=== PATIENT | male | born 1975 | race American Indian/Alaskan Native ===

== ENCOUNTER 2018-11-02 01:36 | Emergency (ER) | payer OTHER ==
[2018-11-02] MEDS ORDERED: ZOFRAN IM ONE (02:38)
[2018-11-02] MEDS ORDERED: SUBLIMAZE IM ONE (02:39)
[2018-11-02 03:09] LABS: Basophils # (Auto) 0.1 K/mm3 (0.0-0.1); Eosinophils # (Auto) 0.3 K/mm3 (0.0-0.4); Eosinophils % (Auto) 3.3 % (0.0-4.3); Lymphocytes # (Auto) 2.3 K/mm3 (1.2-5.4); Lymphocytes % (Auto) 29.6 % (13.4-35.0); Monocytes # (Auto) 0.6 K/mm3 (0.0-0.8); Monocytes % (Auto) 7.2 % (0.0-7.3)
[2018-11-02 03:13] LABS: Red Blood Count 4.57 M/mm3 (3.65-5.03)
[2018-11-02 03:14] LABS: Hematocrit 43.1 % (35.5-45.6); Hemoglobin 15.5 gm/dl (11.8-15.2); Mean Corpuscular HGB Conc 36 % (32-34); Mean Corpuscular Volume 94 fl (84-94); Platelet Count 208 K/mm3 (140-440); Red Cell Distribution Width 13.7 % (13.2-15.2)
[2018-11-02 03:30] LABS: Alanine Aminotransferase 24 units/L (7-56); Albumin 3.8 g/dL (3.9-5); BUN/Creatinine Ratio 21; Blood Urea Nitrogen 19 mg/dL (9-20); Calcium 8.9 mg/dL (8.4-10.2); Hemolysis Index 21
[2018-11-02 08:55] LABS: INR 0.91 (0.87-1.13)
--- NOTE | 2018-11-02 09:04 | Emergency Department Report ---
ED General Adult HPI - General Chief complaint: Extremity Injury, Lower Stated complaint: PAIN IN RT LEG, NUMBNESS IN BIG TOE RT FOOT Time Seen by Provider: 11/02/18 07:23 Source: patient Mode of arrival: Ambulatory Limitations: No Limitations - History of Present Illness Initial comments: This is a 42-year-old man states he's been having pain in his right popliteal area of his leg for more than a week. He states it has been somewhat progressive. He noted that he was having some difficulty dorsiflexing his right great toe. He does not complain of abdominal pain. The discomfort in his leg is moderate in intensity. He said no respiratory symptoms. He has not been to another medical provider over the course of this syndrome. He states he's never had this before. He denies any current medications or previous medical problems. -: Gradual, week(s) Location: right, lower extremity Radiation: non-radiation Severity scale (0 -10): 0 Quality: aching Consistency: intermittent Improves with: none Associated Symptoms: denies other symptoms (except as above) - Related Data Previous Rx's Medication Instructions Recorded Last Taken Type traMADol [Ultram] 50 mg PO Q6HR PRN #14 tablet 11/02/18 Unknown Rx Allergies Allergy/AdvReac Type Severity Reaction Status Date / Time No Known Allergies Allergy Unverified 11/02/18 02:35 ED Review of Systems ROS: Stated complaint: PAIN IN RT LEG, NUMBNESS IN BIG TOE RT FOOT Other details as noted in HPI Constitutional: denies: chills, fever Eyes: denies: eye pain, eye discharge, vision change ENT: denies: ear pain, throat pain Respiratory: denies: cough, shortness of breath, wheezing Cardiovascular: denies: chest pain, palpitations Endocrine: no symptoms reported Gastrointestinal: denies: abdominal pain, nausea, diarrhea Genitourinary: denies: urgency, dysuria Musculoskeletal: as per HPI. denies: back pain, joint swelling, arthralgia Skin: denies: rash, lesions Neurological: other (no problems with the ankle just difficulty moving the great toe). denies: headache, weakness, paresthesias Psychiatric: denies: anxiety, depression Hematological/Lymphatic: denies: easy bleeding, easy bruising ED Past Medical Hx - Past Medical History Previous Medical History?: No - Surgical History Past Surgical History?: No - Social History Smoking Status: Smoker, Current Status Unknown Substance Use Type: Alcohol - Medications Home Medications: Home Medications Medication Instructions Recorded Confirmed Last Taken Type traMADol [Ultram] 50 mg PO Q6HR PRN #14 tablet 11/02/18 Unknown Rx ED Physical Exam - General Limitations: No Limitations General appearance: alert, in no apparent distress - Head Head exam: Present: atraumatic, normocephalic - Eye Eye exam: Present: normal appearance, PERRL, EOMI. Absent: scleral icterus - ENT ENT exam: Present: mucous membranes moist - Neck Neck exam: Present: normal inspection - Respiratory Respiratory exam: Present: normal lung sounds bilaterally. Absent: respiratory distress - Cardiovascular Cardiovascular Exam: Present: regular rate, normal rhythm. Absent: systolic murmur, diastolic murmur, rubs, gallop - GI/Abdominal GI/Abdominal exam: Present: soft, normal bowel sounds. Absent: distended, tenderness, guarding, rebound, rigid - Rectal Rectal exam: Present: deferred - Extremities Exam Extremities exam: Present: normal inspection, full ROM, normal capillary refill. Absent: tenderness, pedal edema, joint swelling, calf tenderness - Back Exam Back exam: Present: normal inspection. Absent: tenderness, CVA tenderness (R), CVA tenderness (L), muscle spasm, paraspinal tenderness, vertebral tenderness - Neurological Exam Neurological exam: Present: alert, oriented X3, CN II-XII intact, other (the patient was able to dorsi flex his foot in the neutral position. He did not have a good ability to dorsi flex his great toe individually. He complained of some discrepancy of fine touch testing but no numbness affecting his right foot). Absent: motor sensory deficit - Psychiatric Psychiatric exam: Present: normal affect, normal mood - Skin Skin exam: Present: warm, dry, intact, normal color. Absent: rash - Other Other exam information: Dorsalis pedis and posterior tibial pulses were 2+ bilaterally ED Course Vital Signs 11/02/18 11/02/18 11/02/18 01:50 02:26 06:59 Temperature 97.7 F 97.7 F Pulse Rate 62 65 64 Respiratory 18 16 Rate Blood Pressure 140/84 140/84 O2 Sat by Pulse 100 99 Oximetry - Reevaluation(s) Reevaluation #1: I consulted with Dr. Finley, or so, who reviewed the CT report. He stated he could be followed at the office and an emergent MRI is not needed at this point. 11/02/18 10:22 ED Medical Decision Making - Lab Data Result diagrams: 11/02/18 02:50 11/02/18 02:50 Laboratory Results - last 24 hr 11/02/18 11/02/18 11/02/18 02:50 02:50 02:50 WBC 7.8 RBC 4.57 Hgb 15.5 H Hct 43.1 MCV 94 MCH 34 H MCHC 36 H RDW 13.7 Plt Count 208 Lymph % (Auto) 29.6 Bremer % (Auto) 7.2 Eos % (Auto) 3.3 Baso % (Auto) 1.0 Lymph # 2.3 Bremer # 0.6 Eos # 0.3 Baso # 0.1 Seg Neutrophils % 58.9 Seg Neutrophils # 4.6 PT INR APTT D-Dimer < 135.0 Sodium 141 Potassium 4.0 Chloride 107.4 H Carbon Dioxide 22 Anion Gap 16 BUN 19 Creatinine 0.9 Estimated GFR > 60 BUN/Creatinine Ratio 21 Glucose 102 H Calcium 8.9 Total Bilirubin 0.20 AST 18 ALT 24 Alkaline Phosphatase 76 Total Protein 6.8 Albumin 3.8 L Albumin/Globulin Ratio 1.3 11/02/18 08:30 WBC RBC Hgb Hct MCV MCH MCHC RDW Plt Count Lymph % (Auto) Bremer % (Auto) Eos % (Auto) Baso % (Auto) Lymph # Bremer # Eos # Baso # Seg Neutrophils % Seg Neutrophils # PT 12.8 INR 0.91 APTT 30.0 D-Dimer 136.37 Sodium Potassium Chloride Carbon Dioxide Anion Gap BUN Creatinine Estimated GFR BUN/Creatinine Ratio Glucose Calcium Total Bilirubin AST ALT Alkaline Phosphatase Total Protein Albumin Albumin/Globulin Ratio - Radiology Data Venous and arterial Doppler are normal Vertebral body heights and alignment are maintained. There is no acute fracture identified. At L1-2, L2-3 and L3-4 there are no disc protrusion, spinal or neuroforaminal stenosis. At L4-5 there is mild to moderate narrowing of the intervertebral disc. There is a diffuse disc bulge . There is a more focal right posterolateral disc protrusion causing mild right neural foraminal narrowing and mild effacement of the right lateral recess. There is only minimal central spinal canal narrowing. At L5-S1 there is mild to moderate intervertebral disc space narrowing with mild marginal spurring. A moderate size central to right paramedian disc herniation causing moderate spinal stenosis and apparent in impingement of right S1 root. IMPRESSION: L5-S1 moderate sized right of midline disc herniation causing moderate focal canal stenosis with impingement of right S1 root. There is also L4-5 degenerative disc disease, as above, causing some mild effacement of the right lateral recess and mild right neuroforaminal narrowing. Critical care attestation.: If time is entered above; I have spent that time in minutes in the direct care of this critically ill patient, excluding procedure time. ED Disposition Clinical Impression: Sciatica, right side, Herniated nucleus pulposus Disposition: TO HOME OR SELFCARE Is pt being admited?: No Does the pt Need Aspirin: No Condition: Stable Instructions: Sciatica (ED) Additional Instructions: No significant lifting. Rest back. Orthopedic follow-up. Call Dr. Finley's office on Saturday. Rx as needed for pain. Return to the emergency department any acute change or problems especially if you have significant back pain, difficulty with urinating or bowel movements or any progressive weakness of your leg. Prescriptions: traMADol [Ultram] 50 mg PO Q6HR PRN #14 tablet PRN Reason: Pain Referrals: PRIMARY CAREMD [Primary Care Provider] - 3-5 Days RED FINLEY MD [Staff Physician] - 2-3 Days Time of Disposition: 10:23
[2018-11-02 09:28] LABS: Creatine Kinase MB 2.7 ng/mL (0.0-4.0)
--- NOTE | 2018-11-02 09:46 | Cat Scan Report ---
PROCEDURE: CT LUMBAR SPINE WO CON TECHNIQUE: CT of the lumbar spine performed. Axial images and coronal and sagittal reformatted images were obtained. HISTORY: leg pain, weak great toe, numbness COMPARISON: None FINDINGS: Vertebral body heights and alignment are maintained. There is no acute fracture identified. At L1-2, L2-3 and L3-4 there are no disc protrusion, spinal or neuroforaminal stenosis. At L4-5 there is mild to moderate narrowing of the intervertebral disc. There is a diffuse disc bulge . There is a more focal right posterolateral disc protrusion causing mild right neural foraminal devan rowing and mild effacement of the right lateral recess. There is only minimal central spinal canal na rrowing. At L5-S1 there is mild to moderate intervertebral disc space narrowing with mild marginal spurring. A moderate size central to right paramedian disc herniation causing moderate spinal stenosis and appar ent in impingement of right S1 root. IMPRESSION: L5-S1 moderate sized right of midline disc herniation causing moderate focal canal stenosis with impi ngement of right S1 root. There is also L4-5 degenerative disc disease, as above, causing some mild effacement of the right lat eral recess and mild right neuroforaminal narrowing. This document is electronically signed by Aminata Flowers MD., Nov 02 2018 09:43:41 AM ET
[2018-11-02 10:58] VITALS: BP 141/83
--- NOTE | 2018-11-02 11:00 | Vascular Lab Report ---
PROCEDURE: VL ARTERIAL DUPLEX LE RT TECHNIQUE: Arterial duplex Doppler of right lower extremity. Grayscale, color flow and spectral wave form images were obtained. HISTORY: leg pain COMPARISON: None FINDINGS: There are triphasic waveforms throughout lower extremity arteries. There is no arterial thrombus seen . There is no flow velocity elevation to indicate focal stenosis. IMPRESSION: Normal arterial duplex Doppler evaluation of lower extremities. This document is electronically signed by Aminata Flowers MD., Nov 02 2018 10:58:54 AM ET
--- NOTE | 2018-11-02 11:01 | Vascular Lab Report ---
PROCEDURE: VL VENOUS DUPLEX LE RT TECHNIQUE: Grayscale, color flow and spectral waveform images were obtained of right lower extremity . HISTORY: leg pain COMPARISON: None FINDINGS: There is no deep venous thrombosis seen in the right lower extremity. Flow is demonstrated by color flow and spectral waveform imaging. There is appropriate wall compression and augmentation. IMPRESSION: There is no evidence for DVT in right lower extremity. This document is electronically signed by Aminata Flowers MD., Nov 02 2018 10:59:36 AM ET
== END 2018-11-02 10:00 | disposition home or self-care (01) ==
LOC: ED 01:36
DX: M54.41 Lumbago with sciatica, right side (principal); M53.3 Sacrococcygeal disorders, not elsewhere classified; F17.200 Nicotine dependence, unspecified, uncomplicated
CPT/HCPCS: 36415; 72131; 80053; 82550; 82553; 85025; 85379; 85610; 85730; 86140; 93926; 93971; 96372; 99284; J2405; J3010